=== PATIENT | female | born 1995 | race American Indian/Alaskan Native ===

== ENCOUNTER 2017-11-12 08:24 | Emergency (ER) | payer OTHER ==
[2017-11-12 08:49] VITALS: BP 138/85
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
[2017-11-12 10:27] LABS: Bacteria,Urine 1+ /HPF (Negative); Bilirubin,Urine NEG (Negative); Blood,Urine NEG (Negative); Color,Urine Yellow (Yellow); Mucus,Urine FEW /HPF; Protein,Urine <15 mg/dL mg/dL (Negative); Urobilinogen,Urine < 2.0 mg/dL (<2.0)
[2017-11-12 10:28] LABS: HCG Qualitative,Urine Negative (Negative)
--- NOTE | 2017-11-12 11:37 | XRay Report ---
CERVICAL SPINE, 3 views: History: Neck pain. Findings: The vertebral bodies, disk spaces, posterior elements and prevertebral soft tissues are unremarkable. The dens is intact. No acute fracture or malalignment is identified. Impression: 1. No evidence for acute injury to the cervical spine.
--- NOTE | 2017-11-12 11:38 | XRay Report ---
AP PELVIS: HISTORY: pain. AP view of the pelvis shows normal pelvic contour and soft tissues. The hips are symmetric and within normal limits as are the sacroiliac joints. IMPRESSION: Normal pelvis.
--- NOTE | 2017-11-12 11:38 | XRay Report ---
LUMBOSACRAL SPINE, 3 VIEWS: History: Back pain Findings: There is mild levocurvature of the spine in the thoracolumbar region. There is straightening of the normal lordosis on the lateral image. No evidence for compression deformity, subluxation, bone lesion or significant degenerative changes. The sacrum and SI joints are unremarkable Impression: Mild scoliosis. No evidence for acute injury to the lumbar spine.
== END 2017-11-12 12:56 | disposition home or self-care (01) ==
LOC: ED 08:24
DX: S19.9XXA Unspecified injury of neck, initial encounter (principal); S39.92XA Unspecified injury of lower back, initial encounter; N39.0 Urinary tract infection, site not specified; I10 Essential (primary) hypertension; J45.909 Unspecified asthma, uncomplicated; F17.200 Nicotine dependence, unspecified, uncomplicated; V89.2XXA Person injured in unspecified motor-vehicle accident, traffic, initial encounter; W22.10XA Striking against or struck by unspecified automobile airbag, initial encounter; Y93.89 Activity, other specified; Y92.89 Other specified places as the place of occurrence of the external cause; Y99.8 Other external cause status
CPT/HCPCS: 72040; 72100; 72170; 81001; 81025; 99283

== ENCOUNTER 2017-11-28 10:52 | Emergency (ER) | payer MEDICAID, OTHER ==
[2017-11-28] MEDS ORDERED: NACL 0.9% 1000 ML 1,000 ML IV ONE (11:05)
[2017-11-28 11:41] LABS: Basophils % (Auto) 0.2 % (0.0-1.8); Hematocrit 41.2 % (30.3-42.9); Hemoglobin 13.7 gm/dl (10.1-14.3); Lymphocytes # (Auto) 0.6 K/mm3 (1.2-5.4); Lymphocytes % (Auto) 9.1 % (13.4-35.0); Mean Corpuscular HGB Conc 33 % (30-34); Mean Corpuscular Hemoglobin 29 pg (28-32); Mean Corpuscular Volume 89 fl (79-97); Monocytes # (Auto) 0.2 K/mm3 (0.0-0.8); Monocytes % (Auto) 3.1 % (0.0-7.3); Platelet Count 407 K/mm3 (140-440); Red Blood Count 4.65 M/mm3 (3.65-5.03); Red Cell Distribution Width 14.5 % (13.2-15.2)
[2017-11-28 11:53] LABS: Alanine Aminotransferase 11 units/L (7-56); Albumin 4.7 g/dL (3.9-5); BUN/Creatinine Ratio 10; Blood Urea Nitrogen 5 mg/dL (7-17); Calcium 9.7 mg/dL (8.4-10.2); Hemolysis Index 13
[2017-11-28] MEDS ORDERED: IMODIUM A-D PO ONE (13:16)
[2017-11-28] MEDS ORDERED: ZOFRAN IV ONE ×3 (13:16→15:23)
--- NOTE | 2017-11-28 13:19 | Emergency Department Report ---
Blank Doc - Documentation Documentation: 21-year-old female with reports of nausea, vomiting, diarrhea, and diffuse abdominal pain since last night. Patient denies fever, dysuria vaginal discharge, urinary frequency. Patient reports LMP was November 03. States she is currently spotting right now. Patient hypertensive 168/106, however she is afebrile and heart rate is normal. Patient with soft, nondistended abdomen. Very mild diffuse abdominal tenderness present. Will check labs, including UA and test, and administer IV fluids and Zofran.
--- NOTE | 2017-11-28 14:22 | Emergency Department Report ---
ED Abdominal Pain HPI - General Chief Complaint: Abdominal Pain Stated Complaint: ABD PAIN/VOMITING Time Seen by Provider: 11/28/17 12:47 Source: patient Mode of arrival: Ambulatory Limitations: No Limitations - History of Present Illness Initial Comments: 21-year-old female with reports of nausea, vomiting, diarrhea, and diffuse abdominal pain since last night. Patient denies fever, dysuria vaginal discharge, urinary frequency. Patient reports that she started her menstrual cycle today with spotting. Patient reports that she has a history of IBS. Pain is 8 out of 10 and generalized and achy, crampy. No alleviating or exacerbating factors and she has not taken any medication for pain. Denies any coughing or chest pain. Denies any back pain. Denies any blood in her stool or vomiting blood. MD Complaint: abdominal pain, other (nausea vomiting and diarrhea) -: Last night Location: diffuse Radiation: none Migration to: no migration Severity: moderate Severity scale (0 -10): 8 Quality: cramping, aching Consistency: constant Improves With: nothing Worsens With: nothing Context: other (unknown but she says she has IBS) Associated Symptoms: nausea, vomiting, diarrhea. denies: fever, chills, constipation, dysuria, hematemesis, hematochezia, melena, hematuria, anorexia, syncope Treatments Prior to Arrival: other (none) - Related Data LMP Date: 11/28/17 Previous Rx's Medication Instructions Recorded Last Taken Type Ciprofloxacin HCl [Ciprofloxacin 500 mg PO Q12H #14 tab 11/12/17 Unknown Rx TAB] Ondansetron [Zofran Odt] 4 mg PO Q8HR PRN #14 tab.rapdis 11/12/17 Unknown Rx traMADol [Ultram] 50 mg PO Q6HR PRN #14 tablet 11/12/17 Unknown Rx Dicyclomine [Bentyl] 20 mg PO Q8H 3 Days #9 tablet 11/28/17 Unknown Rx Promethazine [Phenergan TAB] 25 mg PO Q6HR PRN #16 tab 11/28/17 Unknown Rx cephALEXin [Keflex] 500 mg PO Q8HR 7 Days #14 cap 11/28/17 Unknown Rx Allergies Allergy/AdvReac Type Severity Reaction Status Date / Time No Known Allergies Allergy Unverified 11/12/17 08:44 ED Review of Systems ROS: Stated complaint: ABD PAIN/VOMITING Other details as noted in HPI Constitutional: denies: chills, fever Eyes: denies: eye discharge ENT: denies: ear pain, throat pain, congestion Respiratory: denies: cough, shortness of breath, SOB with exertion, SOB at rest , wheezing Cardiovascular: denies: chest pain, palpitations, edema, syncope Gastrointestinal: abdominal pain, nausea, vomiting, diarrhea. denies: constipation, hematemesis, melena, hematochezia Genitourinary: denies: urgency, dysuria, frequency, hematuria, discharge, abnormal menses, dyspareunia Musculoskeletal: denies: back pain, joint swelling, arthralgia, myalgia Skin: denies: rash, lesions Neurological: denies: headache, weakness, vertigo Psychiatric: anxiety. denies: depression Hematological/Lymphatic: denies: easy bleeding, easy bruising ED Past Medical Hx - Past Medical History Previous Medical History?: Yes Hx Hypertension: Yes Hx Asthma: Yes (childhood) Additional medical history: IBS - Surgical History Past Surgical History?: No - Family History Family history: hypertension - Social History Smoking Status: Current Every Day Smoker Substance Use Type: None - Medications Home Medications: Home Medications Medication Instructions Recorded Confirmed Last Taken Type Ciprofloxacin HCl [Ciprofloxacin 500 mg PO Q12H #14 tab 11/12/17 Unknown Rx TAB] Ondansetron [Zofran Odt] 4 mg PO Q8HR PRN #14 tab.rapdis 11/12/17 Unknown Rx traMADol [Ultram] 50 mg PO Q6HR PRN #14 tablet 11/12/17 Unknown Rx Dicyclomine [Bentyl] 20 mg PO Q8H 3 Days #9 tablet 11/28/17 Unknown Rx Promethazine [Phenergan TAB] 25 mg PO Q6HR PRN #16 tab 11/28/17 Unknown Rx cephALEXin [Keflex] 500 mg PO Q8HR 7 Days #14 cap 11/28/17 Unknown Rx ED Physical Exam - General Limitations: No Limitations General appearance: alert, anxious (mild) - Head Head exam: Present: atraumatic, normocephalic, normal inspection - Eye Eye exam: Present: normal appearance, PERRL, EOMI Pupils: Present: normal accommodation - ENT ENT exam: Present: normal exam, normal orophraynx, mucous membranes moist, TM's normal bilaterally, normal external ear exam - Neck Neck exam: Present: normal inspection, full ROM. Absent: tenderness, lymphadenopathy - Respiratory Respiratory exam: Present: normal lung sounds bilaterally. Absent: respiratory distress, chest wall tenderness - Cardiovascular Cardiovascular Exam: Present: regular rate, normal rhythm, normal heart sounds. Absent: systolic murmur, diastolic murmur - GI/Abdominal GI/Abdominal exam: Present: soft, tenderness (mild generalized tenderness per patient), normal bowel sounds. Absent: distended, guarding, rebound, rigid, organomegaly, mass - Extremities Exam Extremities exam: Present: normal inspection, full ROM, normal capillary refill , other (No cce. + 2 pulses in all extremities, no neurovascular compromise). Absent: tenderness, pedal edema, joint swelling, calf tenderness - Back Exam Back exam: Present: normal inspection, full ROM, other (ambulatory without difficulties). Absent: tenderness, CVA tenderness (R), CVA tenderness (L), muscle spasm, paraspinal tenderness, vertebral tenderness, rash noted - Neurological Exam Neurological exam: Present: alert, oriented X3 - Psychiatric Psychiatric exam: Present: normal affect, normal mood - Skin Skin exam: Present: warm, dry, intact, normal color. Absent: rash ED Course Vital Signs 11/28/17 11/28/17 11:01 17:11 Temperature 98.7 F 98.5 F Pulse Rate 65 56 L Respiratory 18 Rate Blood Pressure 168/106 Blood Pressure 156/86 [Left] O2 Sat by Pulse 98 97 Oximetry Vital Signs 11/28/17 11/28/17 11:01 17:11 Temperature 98.7 F 98.5 F Pulse Rate 65 56 L Respiratory 18 Rate Blood Pressure 168/106 Blood Pressure 156/86 [Left] O2 Sat by Pulse 98 97 Oximetry - Reevaluation(s) Reevaluation #1: 11/28/17 14:26 Patient received Zofran 4 mg IV and Imodium by mouth and still awaiting in normal saline IV fluid. No change in his abdominal assessment. Nausea has resolved for now. Reevaluation #2: 11/28/17 16:42 Patient received Zofran 4 mg IV for recurrent nausea and IV fluid infusing completed and she is tolerated cranberry juice without any problem. Prior to drinking she received lidocaine 15 mL combined with Maalox 15 mL and Phenergan 50 mg by mouth which relieved her pain to her abdomen and also her nausea. She had no episode of diarrhea emergency room. Abdominal exam without any tenderness. ED Medical Decision Making - Lab Data Result diagrams: 11/28/17 11:13 11/28/17 11:13 Lab Results 11/28/17 11/28/17 11/28/17 Range/Units 11:13 11:13 14:40 WBC 6.6 (4.5-11.0) K/mm3 RBC 4.65 (3.65-5.03) M/mm3 Hgb 13.7 (10.1-14.3) gm/dl Hct 41.2 (30.3-42.9) % MCV 89 (79-97) fl MCH 29 (28-32) pg MCHC 33 (30-34) % RDW 14.5 (13.2-15.2) % Plt Count 407 (140-440) K/mm3 Lymph % (Auto) 9.1 L (13.4-35.0) % [place] % (Auto) 3.1 (0.0-7.3) % Eos % (Auto) 0.0 (0.0-4.3) % Baso % (Auto) 0.2 (0.0-1.8) % Lymph # 0.6 L (1.2-5.4) K/mm3 [place] # 0.2 (0.0-0.8) K/mm3 Eos # 0.0 (0.0-0.4) K/mm3 Baso # 0.0 (0.0-0.1) K/mm3 Seg Neutrophils % 87.6 H (40.0-70.0) % Seg Neutrophils # 5.8 (1.8-7.7) K/mm3 Sodium 140 (137-145) mmol/L Potassium 4.1 (3.6-5.0) mmol/L Chloride 103.3 (98-107) mmol/L Carbon Dioxide 23 (22-30) mmol/L Anion Gap 18 mmol/L BUN 5 L (7-17) mg/dL Creatinine 0.5 L (0.7-1.2) mg/dL Estimated GFR > 60 ml/min BUN/Creatinine Ratio 10 % Glucose 116 H (65-100) mg/dL Calcium 9.7 (8.4-10.2) mg/dL Total Bilirubin 1.10 (0.1-1.2) mg/dL AST 17 (5-40) units/L ALT 11 (7-56) units/L Alkaline Phosphatase 91 (35-129) units/L Total Protein 7.7 (6.3-8.2) g/dL Albumin 4.7 (3.9-5) g/dL Albumin/Globulin Ratio 1.6 % Urine Color Yellow (Yellow) Urine Turbidity Slightly-cloudy (Clear) Urine pH 7.0 (5.0-7.0) Ur Specific [place] 1.016 (1.003-1.030) Urine Protein 30 mg/dl (Negative) mg/dL Urine Glucose (UA) Neg (Negative) mg/dL Urine Ketones Neg (Negative) mg/dL Urine Blood Mod (Negative) Urine Nitrite Neg (Negative) Urine Bilirubin Neg (Negative) Urine Urobilinogen < 2.0 (<2.0) mg/dL Ur Leukocyte Esterase Sm (Negative) Urine WBC (Auto) 30.0 H (0.0-6.0) /HPF Urine RBC (Auto) 9.0 (0.0-6.0) /HPF U Epithel Cells (Auto) 5.0 (0-13.0) /HPF Urine Mucus 3+ /HPF Urine HCG, Qual Negative (Negative) Urine culture sent - Medical Decision Making This is a 21-year-old female here report that she is having nausea vomiting and diarrhea with generalized abdominal pain since last night. Patient with history of IBS and she is here to be evaluated. Labs: CBC and CMP to include lipase are normal. Urinalysis with positive leukocyte Estrace, positive white blood cell and moderate amount of blood. Without any RBCs. test is negative. Urine culture sent and pending Assessment/plan 1:Abdominal pain-better with lidocaine and Maalox. Will send home on Bentyl. Patient started her menses today. 2: Nausea vomiting and diarrhea-has resolved. Patient had no diarrhea still emergency room she had no episode of vomiting. Labs are stable. She received Zofran 4 mg IV and also Phenergan milligrams by mouth in the emergency room. immodium 4 mg po. Received 1 L normal saline. She is able to tolerate oral liquids. Patient says she is feeling better. 3: Acute cystitis with hematuria-patient will be sent home on Keflex and follow up with her primary care doctor in 2-3 days. 4: [id number] with BUSINESS INTELLIGENCE DIRECTOR The patient and her diagnosis, treatment plan, laboratory findings and medication. She voiced understanding. She also understands that if her symptoms return she needs to return to the emergency room. I discussed with her she needs to follow up with her primary care doctor in 2-3 days to follow- up. I also discussed with her that I will refer her to GI doctor for her IBS and stomach pain and also to primary care. I told if she does have a primary care she can follow-up with outside Medical Center. Patient voiced understanding and discharged home in stable condition with prescription for Phenergan, Bentyl and Keflex. Vital signs are stable she is afebrile and her nausea and vomiting has resolved. - Differential Diagnosis IBS, enteritis, UTI, dysmenorrhea Critical care attestation.: If time is entered above; I have spent that time in minutes in the direct care of this critically ill patient, excluding procedure time. ED Disposition Clinical Impression: Nausea, vomiting and diarrhea, Dysmenorrhea Abdominal pain Qualifiers: Abdominal location: generalized Qualified Code(s): R10.84 - Generalized abdominal pain UTI (urinary tract infection) Qualifiers: Urinary tract infection type: acute cystitis Hematuria presence: with hematuria Qualified Code(s): N30.01 - Acute cystitis with hematuria Disposition: TO HOME OR SELFCARE Is pt being admited?: No Does the pt Need Aspirin: No Condition: Stable Instructions: Dysmenorrhea (ED), Urinary Tract Infection in Women (ED), Acute Nausea and Vomiting (ED), Acute Diarrhea (ED), Abdominal Pain (ED), Nutrition Tips for Relief of Diarrhea (ED) Additional Instructions: Please follow up with mushroom press operator and BUSINESS INTELLIGENCE DIRECTOR doctor as instructed. See discharge instruction paperwork for details phone number and address. Call Thursday for follow-up in 2-3 days Follow-up with primary care physician in 2 days. If he did not have a primary care physician follow-up outside Medical Center. Take Bentyl for stomach pain in Phenergan for nausea Take Keflex for urinary tract infection. Inrease fluid intake If symptoms worsen, return to emergency room Prescriptions: cephALEXin [Keflex] 500 mg PO Q8HR 7 Days #14 cap Dicyclomine [Bentyl] 20 mg PO Q8H 3 Days #9 tablet Promethazine [Phenergan TAB] 25 mg PO Q6HR PRN #16 tab PRN Reason: Nausea Referrals: PRIMARY CARE, [Primary Care Provider] - 11/30/17 [facility] [Outside] - 11/30/17 [facility] [Provider Group] - 2-3 Days [facility] [Provider Group] - 2-3 Days Forms: Work/School Release Form(ED)
[2017-11-28 15:00] LABS: Bilirubin,Urine NEG (Negative); Blood,Urine MOD (Negative); Color,Urine Yellow (Yellow); Mucus,Urine 3+ /HPF; Urobilinogen,Urine < 2.0 mg/dL (<2.0)
[2017-11-28 15:01] LABS: HCG Qualitative,Urine Negative (Negative)
[2017-11-28] MEDS ORDERED: LIDOCAINE VISCOUS 2% PO ONE (15:43)
[2017-11-28] MEDS ORDERED: ALUM-MAG HYDROX-SIMETH 200-200-20MG/5ML PO ONE (15:43)
[2017-11-28] MEDS ORDERED: PHENERGAN PO ONE (15:43)
[2017-11-28 17:12] VITALS: BP 156/86
== END 2017-11-28 18:09 | disposition home or self-care (01) ==
LOC: ED 10:52
DX: N39.0 Urinary tract infection, site not specified (principal); N94.6 Dysmenorrhea, unspecified; I10 Essential (primary) hypertension; J45.909 Unspecified asthma, uncomplicated; F17.200 Nicotine dependence, unspecified, uncomplicated
CPT/HCPCS: 36415; 80053; 81001; 81025; 85025; 87086; 96361; 96374; 96376; 99284; J2405; J7030; Q0169